=== PATIENT | female | born 1975 | race Caucasian/White ===

== ENCOUNTER 2020-07-25 09:30 | Emergency (ER) | payer OTHER ==
[2020-07-25] MEDS ORDERED: Sodium Chloride 0.9% 10 ML Syringe FLUSH PRN (10:01)
[2020-07-25] MEDS ORDERED: Sodium Chloride 0.9% 1,000 ML IV ONE (10:01)
[2020-07-25] MEDS ORDERED: Promethazine 25 MG in Sodium Chloride 0.9% 50 ML IV ONE ×2 (10:03→10:15)
[2020-07-25] MEDS ORDERED: Ketorolac 30 MG/ML SDV IVPUSH ONE (10:04)
[2020-07-25] MEDS ORDERED: diphenhydrAMINE 50 MG/ML SDV IVPUSH ONE (10:04)
--- NOTE | 2020-07-25 10:20 | EDM.PDOC ---
ED HPI GENERAL MEDICAL PROBLEM - General Chief Complaint: Gastrointestinal Problem Stated Complaint: REACTION TO COVID VACCINE, MIGRAINE AND VOMITTING Time Seen by Provider: 07/25/20 10:01 Source of Information: Reports: Patient History Limitations: Reports: No Limitations - History of Present Illness INITIAL COMMENTS - FREE TEXT/NARRATIVE: Patient presents to the ER today due to migraine RING that she has been unable to control with home care measures--has tried imitrex that she has at home but due to vomiting has been unable to keep down. since about 0500 has been vomiting multiple times. Patient states that she started having vague RING last night/2199, took tylenol and went to bed. woke up this morning with marked increase in RING very typical for her migraine history. She states RING is left sided--confucianist/forehead area which is her normal. She has vomiting multiple times this morning. Rates pain as 7-8/10 throbbing in nature. She states she received her second COVID immunization yesterday ([place]) PMH--cavernous hemaginoma of brain (monitored annually), migraine HAs Meds--Imitrex prn NKDA Tob--denies EtOH--rare Drugs--denies Onset: Gradual Duration: Getting Worse Location: Reports: Head, Face Quality: Reports: Pressure, Throbbing Severity: Severe Improves with: Reports: None (unable to keep down her Imitrex due to vomiting) Associated Symptoms: Reports: Nausea/Vomiting Treatments MONITORING SPECIALIST: Reports: Acetaminophen (last night/2199), Other (see below) (imitrex this morning) Headache Pain Score (Numeric/FACES): 7 - Related Data Allergies Allergy/AdvReac Type Severity Reaction Status Date / Time No Known Allergies Allergy Verified 07/25/20 09:53 Home Meds: Home Meds SUMAtriptan succinate [Imitrex] 50 mg PO ASDIRECTED 07/25/20 [History] Past Medical History HEENT History: Reports: Impaired 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 Constitutional: Reports: No Symptoms HEENT: Reports: No Symptoms Respiratory: Reports: No Symptoms Cardiovascular: Reports: No Symptoms Endocrine: Reports: No Symptoms GI/Abdominal: Reports: Nausea, Vomiting (started around 0500 this morn ing--multiple times; vomiting episodes cause exacerbation of RING pain) : Reports: No Symptoms Musculoskeletal: Reports: No Symptoms Skin: Reports: No Symptoms Neurological: Reports: Headache Psychiatric: Reports: No Symptoms Hematologic/Lymphatic: Reports: No Symptoms Immunologic: Reports: No Symptoms - Physical Exam Exam: See Below Exam Limited By: No Limitations General Appearance: Alert, Moderate Distress Eye Exam: Bilateral Eye: EOMI, Normal Inspection, PERRL Ears: Normal External Exam Nose: Normal Inspection Throat/Mouth: Normal Inspection Head Exam: Atraumatic, Normocephalic Neck: Normal Inspection, Supple, Non-Tender, Full Range of Motion Respiratory/Chest: No Respiratory Distress, Lungs Clear, Normal Breath Sounds, No Accessory Muscle Use Cardiovascular: Normal Peripheral Pulses, Regular Rate, Rhythm, No Edema, No Murmur GI/Abdominal: Normal Bowel Sounds, Soft, Non-Tender (Female) Exam: Deferred Rectal (Female) Exam: Deferred Neuro Exam (Abbreviated): Alert, Oriented, CN II-XII Intact, Normal Cognition, No Motor/Sensory Deficits Back Exam: Normal Inspection Extremities: Normal Inspection, Normal Capillary Refill Psychiatric: Normal Affect, Normal Mood Skin Exam: Warm, Dry, Intact, Normal Color Course - Vital Signs Text/Narrative:: 1035--INFORMATICA MDM DEVELOPER reports that patient is starting to feel improved; will recheck at 1100 for probable d/c home at that time. 1109--patient reports feeling improved; nausea completely gone, RING now 4/10, no longer having skin "pain". will give oral sumatriptan and d/c home with rx for ondansetron & sumatriptan as she does not have any up here (she is from [facility]). ready for d/c. Last Recorded V/S: Last Vital Signs Temp 97.3 F 07/25/20 09:42 Pulse 100 07/25/20 09:42 Resp 30 H 07/25/20 09:42 BP Pulse Ox 100 07/25/20 09:42 - Orders/Labs/Meds Orders: Active Orders 24 hr Category Date Time Status Sodium Chloride 0.9% [Saline Flush] Med 07/25/20 10:01 Active 10 ml FLUSH ASDIRECTED PRN Saline Lock Insert [OM.PC] Routine Oth 07/25/20 10:01 Ordered Medication Orders Sodium Chloride (Sodium Chloride 0.9% 10 Ml Syringe) 10 ml FLUSH ASDIRECTED PRN PRN Reason: Keep Vein Open Last Admin: 07/25/20 10:28 Dose: 10 ml Documented by: KASHIF Meds: Medications Generic Name Dose Route Start Last Admin Trade Name Freq PRN Reason Stop Dose Admin Sodium Chloride 10 ml 07/25/20 10:01 07/25/20 10:28 Sodium Chloride 0.9% 10 Ml Syringe FLUSH 10 ml ASDIRECTED PRN Administration Keep Vein Open Discontinued Medications Generic Name Dose Route Start Last Admin Trade Name Freq PRN Reason Stop Dose Admin Diphenhydramine HCl 25 mg 07/25/20 10:04 07/25/20 10:24 Diphenhydramine 50 Mg/Ml Sdv IVPUSH 07/25/20 10:05 25 mg ONETIME ONE Administration Sodium Chloride 1,000 mls @ 999 mls/hr 07/25/20 10:01 07/25/20 10:21 Normal Saline IV 07/25/20 11:01 999 mls/hr .BOLUS ONE Administration Promethazine HCl 25 mg/ Sodium 51 mls @ 200 mls/hr 07/25/20 10:15 07/25/20 10:21 Chloride IV 07/25/20 10:30 200 mls/hr ONETIME ONE Administration Ketorolac Tromethamine 30 mg 07/25/20 10:04 07/25/20 10:21 Ketorolac 30 Mg/Ml Sdv IVPUSH 07/25/20 10:05 30 mg ONETIME ONE Administration Departure - Departure Time of Disposition: 11:20 Disposition: Home, Self-Care 01 Condition: Good Clinical Impression: Migraine headache, Nausea & vomiting - Discharge Information *PRESCRIPTION DRUG MONITORING PROGRAM REVIEWED*: Not Applicable *COPY OF PRESCRIPTION DRUG MONITORING REPORT IN PATIENT CATE: Not Applicable Instructions: Recurrent Migraine Headache Referrals: AVINASH YBARRA [Other] Forms: ED Department Discharge Additional Instructions: you have been provided Rx for sumatriptan (for ongoing migraine headache care needs) & ondansetron (for any nausea/vomiting associated with headache you may have) Sepsis Event Note (ED) - Evaluation Sepsis Screening Result: No Definite Risk - Focused Exam Vital Signs: Vital Signs Temp Pulse Resp Pulse Ox 07/25/20 09:42 97.3 F 100 30 H 100 - My Orders Last 24 Hours: My Active Orders 07/25/20 10:01 Sodium Chloride 0.9% [Saline Flush] 10 ml FLUSH ASDIRECTED PRN Saline Lock Insert [OM.PC] Routine - Assessment/Plan Last 24 Hours: My Active Orders 07/25/20 10:01 Sodium Chloride 0.9% [Saline Flush] 10 ml FLUSH ASDIRECTED PRN Saline Lock Insert [OM.PC] Routine
== END 2020-07-25 11:41 | disposition home or self-care (01) ==
LOC: JP.ED 09:30
DX: G43.909 Migraine, unspecified, not intractable, without status migrainosus (principal); R11.2 Nausea with vomiting, unspecified
CPT/HCPCS: 96365; 96375; 99283; 99283-25; J1200; J1885; J2550; J7030